=== PATIENT | female | born 1990 | race Caucasian/White ===

== ENCOUNTER 2019-11-15 08:41 | Outpatient (CLI) | payer OTHER | END 2019-11-15 08:49 | disposition home or self-care (01) | LOC: RX STUDY 08:41 | PROVIDERS: ATTEND Obstetrics & Gynecology Reproductive Endocrinology | DX: N91.0 Primary amenorrhea (principal); N93.8 Other specified abnormal uterine and vaginal bleeding; Q50.6 Other congenital malformations of fallopian tube and broad ligament ==